=== PATIENT | female | born 1945 | race Asian ===

== ENCOUNTER 2017-02-09 22:54 | Emergency (ER) | payer MEDICARE, OTHER ==
[~2017-02-09] VITALS: Ht 154.9 cm; Wt 69.5 kg
[2017-02-09] MEDS ORDERED: GABA-529 PO (23:08)
[2017-02-09] MEDS ORDERED: LOSA50TA37 PO (23:08)
[2017-02-09] MEDS ORDERED: RANO500T3 PO (23:08)
[2017-02-09] MEDS ORDERED: ISOS10TA16 PO (23:08)
[2017-02-09] MEDS ORDERED: METO25 PO (23:08)
[2017-02-09] MEDS ORDERED: SIMV-260 PO (23:08)
[2017-02-09] MEDS ORDERED: METF500T4 PO (23:08)
[2017-02-09] MEDS ORDERED: ASPI-556 PO (23:08)
[2017-02-09 23:12] LABS: GLUCOSE,POINT OF CARE 184 MG/DL (70-110)
[2017-02-10 00:46] LABS: BASOPHILS % (AUTO) 0.3 % (0.0-2.0); EOSINOPHILS % (AUTO) 0.8 % (1.0-6.0); HEMATOCRIT 38.4 % (36-46); HEMOGLOBIN 12.7 g/dL (12.0-16.0); LYMPHOCYTES # (AUTO) 1.4 K/uL (1.0-4.8); LYMPHOCYTES % (AUTO) 14.7 % (22.0-44.0); MEAN CORPUSCULAR HEMOGLOBIN 30.5 pg (26.0-34.0); MEAN CORPUSCULAR HGB CONC 33.1 G/dL (31.0-37.0); MEAN CORPUSCULAR VOLUME 92 fL (80-100); MONOCYTES # (AUTO) 0.3 K/uL (0.1-1.0); MONOCYTES % (AUTO) 2.7 % (2.0-9.0); NEUTROPHILS % (AUTO) 81.5 % (40.0-70.0); PLATELET COUNT (AUTO) 213 K/uL (150-450); RED BLOOD CELL COUNT(AUTO) 4.17 MIL/uL (4.00-5.20); RED CELL DISTRIBUTION WIDTH 14.7 % (11.5-14.5); WHITE BLOOD COUNT (AUTO) 9.8 K/uL (4.5-11.0)
[2017-02-10 00:57] LABS: CALCIUM, TOTAL 9.3 mg/dL (8.8-10.5); CREATININE 1.2 mg/dL (0.60-1.30); POTASSIUM 3.9 mmol/L (3.5-5.1)
[2017-02-10 01:03] LABS: ALBUMIN 3.8 g/dL (3.4-5.0); BILIRUBIN,TOTAL 0.5 mg/dL (0.1-1.0); TOTAL PROTEIN, SERUM 7.6 g/dL (6.4-8.2)
[2017-02-10] MEDS ORDERED: ONDANSETRON HCL 4 MG/2 ML VIAL IVP ONE (02:30)
[2017-02-10] MEDS ORDERED: MECLIZINE HCL 25 MG TABLET PO ONE (02:30)
[2017-02-10] MEDS ORDERED: ACETAMINOPHEN 500 MG TABLET PO ONE (02:30)
[2017-02-10 04:28] VITALS: BP 118/53
== END 2017-02-10 04:58 | disposition home or self-care (01) ==
LOC: EMS 22:57
DX: R42 Dizziness and giddiness (principal); E11.65 Type 2 diabetes mellitus with hyperglycemia; G62.9 Polyneuropathy, unspecified; I10 Essential (primary) hypertension; Z79.82 Long term (current) use of aspirin
CPT/HCPCS: 70450; 82962; 93005; 99285; J2405